=== PATIENT | male | born 1960 | race Asian ===

== ENCOUNTER 2016-10-15 10:34 | Emergency (ER) | payer OTHER ==
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
[2016-10-15 11:02] VITALS: BP 158/95; TEMP 98.3; O2SAT 97
[2016-10-15] MEDS ORDERED: SILVER SULFADIAZINE 1 % 25 GM TUBE TOP ONE (11:12)
== END 2016-10-15 11:22 | disposition home or self-care (01) ==
LOC: ER 10:34
DX: T22.211A Burn of second degree of right forearm, initial encounter (principal); X18.XXXA Contact with other hot metals, initial encounter; Y99.0 Civilian activity done for income or pay

== ENCOUNTER → 2018-01-25 | Outpatient (CLI) | payer BC ==
--- NOTE | 2018-01-25 10:45 | RAD ---
EXAM DESCRIPTION: Shoulder,Right 2 or More Views CLINICAL HISTORY: PAIN IN RIGHT SHOULDER COMPARISON: None. IMPRESSION: 4 views of the right shoulder show no evidence of acute fracture, focal bone destruction, or joint dislocation. The right acromioclavicular joint is unremarkable. Electronically signed by: Lanre Loomis MD 01/25/2018 10:44 AM [facility]
== END ==
LOC: RAD 09:35
PROVIDERS: ATTEND Family Medicine
DX: M25.511 Pain in right shoulder (principal)

== ENCOUNTER → 2018-03-18 | Outpatient (CLI) | payer BC ==
--- NOTE | 2018-03-18 10:53 | US ---
US THYROID CLINICAL STATEMENT: THYROID NODULE. COMPARISON: None FINDINGS: Size right thyroid lobe: 4.1 x 1.9 x 2.0 cm Size left thyroid lobe: 3.6 x 1.7 x 1.3 cm Size isthmus: 1.0 cm Estimated total number of nodules greater than or equal to 1 cm: 4 Nodule 1: Size: 2.1 x 1.5 x 2.1 cm Location: Right Lower Composition: solid or almost completely solid: 2 points Echogenicity: isoechoic: 1 point Shape: wider than tall: 0 points Margins: smooth: 0 points Echogenic foci: none: 0 points ACR Total Points: 3; ACR TI-RADS risk category: TR3 - mildly suspicious nodule. Nodule 2: Size: 1.4 x 1.3 x 1.4 cm Location: Isthmus Composition: solid or almost completely solid: 2 points Echogenicity: isoechoic: 1 point Shape: wider than tall: 0 points Margins: smooth: 0 points Echogenic foci: none: 0 points ACR Total Points: 3; ACR TI-RADS risk category: TR3 - mildly suspicious nodule. Nodule 3: Size: 1.8 x 0.9 x 1.1 cm Location: Left Mid Composition: mixed cystic and solid: 1 point Echogenicity: isoechoic: 1 point Shape: wider than tall: 0 points Margins: smooth: 0 points Echogenic foci: none: 0 points ACR Total Points: 2; ACR TI-RADS risk category: TR2 - nonsuspicious nodule. Cystic and solid nodule in the midpole of the right lobe thyroid measures 11 x 12 x 11 mm consistent with TR 3 lesion. IMPRESSION: 1. Nodule 1: ACR TI-RADS 2017 Category 3. Recommend: Follow-up ultrasound in 1 year. 2. Nodule 2: ACR TI-RADS 2017 Category 3. Recommend: No further follow-up. 3. Nodule 3: ACR TI-RADS 2017 Category 2. Recommend: No further follow-up. 4. Multiple thyroid nodules suggest old nodular goiter. ACR TI-RADS 2017 Recommendations: TR1: No FNA or follow up TR2: No FNA or follow up TR3: FNA if >/= 2.5 cm, follow up if 1.5 - 2.4 cm in 1, 3, and 5 years TR4: FNA if >/= 1.5 cm, follow up if 1.0 - 1.4 cm in 1, 2, 3, and 5 years TR5: FNA if >/= 1.0 cm, follow up if 0.5 - 0.9 cm every year for 5 years *ACR TI-RADS recommends that no more than two nodules with the highest ACR TI-RADS total point should be biopsied and no more than four nodules should be followed. Electronically signed by: Lanre Loomis MD 03/18/2018 10:51 AM [facility]
== END ==
LOC: US 08:51
PROVIDERS: ATTEND Family Medicine
DX: E04.1 Nontoxic single thyroid nodule (principal)

== ENCOUNTER → 2018-04-14 | Outpatient (CLI) | payer BC | LOC: GMAE 10:30 | PROVIDERS: ATTEND Family Medicine | DX: E04.1 Nontoxic single thyroid nodule (principal) ==

== ENCOUNTER → 2019-02-21 | Outpatient (CLI) | payer BC | LOC: GMAE 11:34 | PROVIDERS: ATTEND Family Medicine | DX: Z00.00 Encounter for general adult medical examination without abnormal findings (principal) ==

== ENCOUNTER → 2019-03-30 | Outpatient (CLI) | payer BC ==
--- NOTE | 2019-03-30 23:14 | US ---
EXAM DESCRIPTION: Thyroid CLINICAL HISTORY: 59 years Male, THYROID NODULE COMPARISON: Ultrasound thyroid 03/10/2018. FINDINGS: Size right thyroid lobe: 4.1 x 2.5 x 2.2 cm Size left thyroid lobe: 3.4 x 1.6 x 1.4 cm Size isthmus: 0.7 cm Thyroid parenchyma demonstrates heterogeneous echogenicity. Estimated total number of nodules greater than or equal to 1 cm: Nodule 1: Size: 2.5 x 2.0 x 1.9 cm; previously 2.1 x 1.5 x 2.1 cm Location: Right Mid Composition: mixed cystic and solid: 1 point Echogenicity: isoechoic: 1 point Shape: taller than wide: 3 points Margins: ill-defined: 0 points Echogenic foci: none: 0 points ACR Total Points: 5; ACR TI-RADS risk category: TR4 - moderately suspicious nodule. Nodule 2: Size: 1.4 x 1.4 x 1.2 cm; previously 1.1 x 1.2 x 1.1 cm Location: Right Mid Composition: mixed cystic and solid: 1 point Echogenicity: isoechoic: 1 point Shape: taller than wide: 3 points Margins: smooth: 0 points Echogenic foci: none: 0 points ACR Total Points: 5; ACR TI-RADS risk category: TR4 - moderately suspicious nodule. Nodule 3: Size: 1.6 x 1.1 x 4.4 cm; previously 1.4 x 1.3 x 1.4 cm Location: Isthmus Composition: solid or almost completely solid: 2 points Echogenicity: hypoechoic: 2 points Shape: wider than tall: 0 points Margins: smooth: 0 points Echogenic foci: none: 0 points ACR Total Points: 4; ACR TI-RADS risk category: TR4 - moderately suspicious nodule. Nodule 4: Size: 1.5 x 1.0 x 1.2 cm; previously 1.8 x 0.9 x 1.1 cm Location: Left Mid Composition: mixed cystic and solid: 1 point Echogenicity: hypoechoic: 2 points Shape: wider than tall: 0 points Margins: smooth: 0 points Echogenic foci: none: 0 points ACR Total Points: 3; ACR TI-RADS risk category: TR3 - mildly suspicious nodule. IMPRESSION: 1. Nodule 1: ACR TI-RADS 2017 Category 4. Recommend: Ultrasound-guided fine needle aspiration 2. Nodule 2: ACR TI-RADS 2017 Category 4. Recommend: Follow-up ultrasound in 1 year. 3. Nodule 3: ACR TI-RADS 2017 Category 4. Recommend: Ultrasound-guided fine needle aspiration 4. Nodule 4: ACR TI-RADS 2017 Category 3. Recommend: Follow-up ultrasound in 1 year. ACR TI-RADS 2017 Recommendations: TR1: No FNA or follow up TR2: No FNA or follow up TR3: FNA if >/= 2.5 cm, follow up if 1.5 - 2.4 cm in 1, 3, and 5 years TR4: FNA if >/= 1.5 cm, follow up if 1.0 - 1.4 cm in 1, 2, 3, and 5 years TR5: FNA if >/= 1.0 cm, follow up if 0.5 - 0.9 cm every year for 5 years *ACR TI-RADS recommends that no more than two nodules with the highest ACR TI-RADS total point should be biopsied and no more than four nodules should be followed. Electronically signed by: Sea Gabriel MD 03/30/2019 11:12 PM [facility]
== END ==
LOC: US 10:00
PROVIDERS: ATTEND Family Medicine
DX: E04.1 Nontoxic single thyroid nodule (principal)

== ENCOUNTER → 2019-04-25 | Outpatient (CLI) | payer BC ==
--- NOTE | 2019-04-26 12:19 | US ---
Thyroid Biopsy, Image-Guided: Biopsy of Thyroid: Ultrasound. ([id number]. [id number].) CLINICAL INFORMATION: 59 years Male. Nodular mass in the right mid thyroid lobe and nodular mass in the isthmus. TECHNIQUE: Procedure was explained to the patient with risks and benefits. The patient gave verbal and written consent. Sterile preparation draping. 1% xylocaine dermal anesthetic 9-1 mixture with sodium bicarbonate. Sterile ultrasound guidance. A total of 6 passes into each nodule; 3 needle samplings with a separate 1.5 inch, 25-gauge needle per sample, and 3 aspirations, with a separate 1.5 inch, 25-gauge needle/10-cc syringe set, per aspiration. Each sample was placed on a separate slide and fixed in 95% alcohol container. 1 aspirated sample from each nodule also placed on slide. For remaining aspirated samples (2 per nodule). Saccomanno fluid drawn into aspirate needle and rinse injected into single Saccomanno container for each nodule. Specimens to be sent for pathologic examination at remote facility. . Patient tolerated procedure well. Biopsy #: 1 Nodule reference number based on prior diagnostic ultrasound:1 Maximum size: 2.5 cm Location: right; mid ACR TI-RADS risk category: TR3 (3 points) Reason for biopsy: meets ACR TI-RADS criteria. Also enlarged since the prior study. Biopsy #: 2 Nodule reference number based on prior diagnostic ultrasound:3 Maximum size: 1.6 cm Location: isthmus; mid ACR TI-RADS risk category: TR4 (4-6 points) Reason for biopsy: meets ACR TI-RADS criteria. Also enlarged since the prior study. Complications: None. FINDINGS: Multiple images demonstrate the echogenic needle within the nodule/mass during sampling and aspirations. IMPRESSION: Successful ultrasound guided fine needle aspiration of right thyroid nodule. ACR TI-RADS Risk Category TR 3. Successful ultrasound-guided fine-needle aspiration of isthmus thyroid nodule. ACR TI-RADS risk category TR 4. Electronically signed by: Andrew Chong MD 04/26/2019 12:18 PM [employer]
== END ==
LOC: US 08:37
PROVIDERS: ATTEND Family Medicine
DX: E04.1 Nontoxic single thyroid nodule (principal)

== ENCOUNTER → 2019-05-25 | Outpatient (CLI) | payer BC ==
--- NOTE | 2019-05-25 19:15 | US ---
Thyroid Biopsy, Image-Guided: Biopsy of Thyroid: Ultrasound CLINICAL INFORMATION: 59 years Male. Mostly solid nodule with cystic component right thyroid lobe. Prior ultrasound-guided needle aspiration biopsy of this mass yielded insufficient cells for diagnosis, 25 April. Same procedure on nodule in isthmus on the same date resulted in benign cytology. TECHNIQUE: The procedure was performed by Dr. Chong. Timeout for patient identification, identification of procedure, and identification of body part. Procedure was explained to the patient with risks and benefits. The patient gave verbal and written consent. Sterile preparation draping. 1% xylocaine dermal anesthetic 9-1 mixture with sodium bicarbonate. Sterile ultrasound guidance. A total of 6 passes right thyroid cystic and solid nodule; 2 needle samplings with a separate 1.5 inch, 25-gauge needle per sample, and 4 aspirations, with a separate 1.5 inch, 25-gauge needle/10-cc syringe set, per aspiration. Each sample was placed on a separate slide and fixed in 95% alcohol container. 2 aspirations were placed on separate slide and fixed in alcohol. On the final 2 aspirations, Saccomanno fluid drawn into aspirate needle and rinse injected into Saccomanno container. Specimens to be sent for pathologic examination at remote facility. . Patient tolerated procedure well. Biopsy #: 1 Nodule reference number based on prior diagnostic ultrasound:1 Maximum size: 2.4 cm Location: right; mid ACR TI-RADS risk category: TR4 (4-6 points) Reason for biopsy: nondiagnostic on prior biopsy The hypoechoic component of the nodule has increased since the prior study. Complications: None FINDINGS: Multiple images demonstrate the echogenic needle within the nodule/mass during sampling and aspirations. IMPRESSION: Successful ultrasound guided fine needle aspiration of right thyroid nodule. ACR TI-RADS Risk Category TR 4 Electronically signed by: Andrew Chong MD 05/25/2019 7:13 PM [facility]
== END ==
LOC: US 08:00
PROVIDERS: ATTEND Family Medicine
DX: E04.1 Nontoxic single thyroid nodule (principal)

== ENCOUNTER → 2020-04-03 | Outpatient (CLI) | payer BC, OTHER | LOC: GMAE 14:32 | PROVIDERS: ATTEND Family Medicine | DX: E04.1 Nontoxic single thyroid nodule (principal); I10 Essential (primary) hypertension; E29.8 Other testicular dysfunction; E78.2 Mixed hyperlipidemia; Z12.5 Encounter for screening for malignant neoplasm of prostate ==